=== PATIENT | male | born 1995 | race Two or more races ===

== ENCOUNTER 2017-11-02 20:48 | Emergency (ER) | payer SELFPAY ==
[~2017-11-02] VITALS: Ht 172.7 cm; Wt 68.0 kg
[2017-11-02 20:58] VITALS: BP 127/73
== END 2017-11-02 21:06 | disposition left against medical advice (07) ==
LOC: ER 20:48
DX: R55 Syncope and collapse (principal); Z53.21 Procedure and treatment not carried out due to patient leaving prior to being seen by health care provider